=== PATIENT | female | born 1965 | race Hispanic/Latino ===

== ENCOUNTER 2018-06-10 20:52 | Emergency (ER) | payer BC, MEDICAID ==
[2018-06-10 21:00] VITALS: TEMP 98.2
[2018-06-10] MEDS ORDERED: Povidone Iodine Oint 10% Foilpak UD ONE (21:38)
[2018-06-10] MEDS ORDERED: Lidocaine 1% w Epi 1:100,000 Inj ONE (21:38)
[2018-06-10] MEDS ORDERED: Lidocaine/Epi 1% 1:100000 20 ML IJ ONE (22:00)
[2018-06-10] MEDS ORDERED: Tdap Vaccine 0.5 ml Vial (10-64 yrs) IM ONE ×2 (22:00→22:32)
--- NOTE | 2018-06-10 22:33 | ED PDOC ---
HPI: Trauma/Fall - HPI Time Seen by Provider: 06/10/18 21:11 Chief Complaint (Nursing): Trauma Chief Complaint (Provider): head trauma History/Exam Limitations: intoxication (mild) Onset/Duration Of Symptoms: Hrs Additional Complaint(s): 52 y/o F with hx of ovarian Ca s/p hysterectomy and recently diagnosed HTN (not on meds yet) who was BIBA to ED after slipping and fall onto step at home with subsequent head trauma. Patient admits to drinking alcohol today but denies hx of ETOH abuse. States that she lost her 5yrs ago to cancer and still feels very down about it. She reportedly stated to her boyfriend that she wanted to . Denies SI currently and states that she has children taht she would never leave. She does not recall hitting head. She is not up to date on tetanus. Past Medical History Vital Signs: Last Vital Signs Temp 98.2 F 06/10/18 20:56 Pulse 106 H 06/10/18 20:56 Resp 18 06/10/18 20:56 BP 155/72 H 06/10/18 20:56 Pulse Ox 99 06/10/18 20:56 - Home Medications Home Medications: Ambulatory Orders Medication Instructions Recorded Ibuprofen [Motrin Tab] 800 mg PO Q6 PRN 7 Days tab 06/11/18 - Allergies Allergies/Adverse Reactions: Allergies Allergy/AdvReac Type Severity Reaction Status Date / Time No Known Allergies Allergy Verified 06/10/18 20:56 Physical Exam - Reviewed Nursing Documentation Reviewed: Yes Vital Signs Reviewed: Yes - Physical Exam Appears: Positive for: Uncomfortable Head Exam: Negative for: ATRAUMATIC (approximately 2cm irregular scalp laceration with associated hematoma on posterior scalp. Hematoma manually expressed prior to scalp lac repair) Eye Exam: Positive for: EOMI, PERRL, Conjunctival injection (b/l) Neck: Positive for: Supple Cardiovascular/Chest: Positive for: Regular Rate, Rhythm Respiratory: Positive for: Normal Breath Sounds Back: Positive for: Normal Inspection Neurologic/Psych: Positive for: Alert, Oriented - ECG O2 Sat by Pulse Oximetry: 99 Medical Decision Making Medical Decision Making: Head CT w/o contrast Tetanus vaccine staple repair of scalp laceration serum ETOH Crisis evaluation 23:[address] FINDINGS: BRAIN No acute intraparenchymal hemorrhage. No mass lesion. No CT evidence for acute territorial infarct. No midline shift or extra-axial collections. VENTRICLES: No hydrocephalus. ORBITS: The orbits are unremarkable. SINUSES AND MASTOIDS: The paranasal sinuses and mastoid air cells are clear. BONES: No fracture. SOFT TISSUES: Unremarkable. IMPRESSION: No acute intracranial abnormality. Pending Crisis evaluation 00:46: seen by Crisis, cleared from psychiatric standpoint as per Dr. Ulloa. pt feeling well, speaking coherently. Son is present and accompanying patient home. Procedures - Laceration/Wound Repair Posterior Head Wound Length (cm): 2 Wound's Depth, Shape: superficial Wound Explored: clean Irrigated w/ Saline (ccs): 400 Betadine Prep?: Yes Anesthesia: Lidocaine w/ Epi Volume Anesthetic (ccs): 4 Wound Repaired With: Jing (4) Layer Closure?: No Wound Complexity: Simple Disposition - Clinical Impression Clinical Impression: Head trauma, Occipital scalp laceration - Disposition Referrals: Mary Nguyen MD [Family Provider] - Additional Instructions: You have [address] that will need to be removed in the next 7-10 days, which can be done by your primary care doctor or return to ER. Keep area dry for the next day and then wash gently with soap/shampoo and water. Return to ER if you have trouble walking, severe LOERA, dizziness, vomiting, visual problem. Prescriptions: Ibuprofen [Motrin Tab] 800 mg PO Q6 PRN 7 Days tab PRN Reason: Pain, Moderate (4-7) Instructions: Laceration Repair With [place] (DC), Head Injury Observation (DC) Forms: [employer] (Finnish) Print Language: TAJIK
[2018-06-11 01:01] VITALS: BP 136/88; PULSE 96; RESP 16; O2SAT 97
--- NOTE | 2018-06-11 08:45 | CT ---
Date of service: 06/10/2018 PROCEDURE: CT HEAD WITHOUT CONTRAST. HISTORY: fall with occipital head trauma, ?LOC COMPARISON: None available. TECHNIQUE: Axial computed tomography images were obtained through the head/brain without intravenous contrast. Radiation dose: Total exam DLP = 791.87 mGy-cm. This CT exam was performed using one or more of the following dose reduction techniques: Automated exposure control, adjustment of the mA and/or kV according to patient size, and/or use of iterative reconstruction technique. FINDINGS: HEMORRHAGE: No intracranial hemorrhage. BRAIN: No mass effect or edema. No atrophy or chronic microvascular ischemic changes. VENTRICLES: Unremarkable. No hydrocephalus. CALVARIUM: Unremarkable. PARANASAL SINUSES: Unremarkable as visualized. No significant inflammatory changes. MASTOID AIR CELLS: Unremarkable as visualized. No inflammatory changes. OTHER FINDINGS: None. IMPRESSION: No evidence of acute intracranial hemorrhage intracranial collection mass effect or midline shift. Preliminary report contains concordant findings was submitted by [facility].
== END 2018-06-11 01:00 | disposition home or self-care (01) ==
LOC: H.ER 20:52
DX: S01.01XA Laceration without foreign body of scalp, initial encounter (principal); W01.0XXA Fall on same level from slipping, tripping and stumbling without subsequent striking against object, initial encounter; Y92.89 Other specified places as the place of occurrence of the external cause; I10 Essential (primary) hypertension